=== PATIENT | female | born 2000 | race Two or more races ===

== ENCOUNTER → 2023-05-27 | Outpatient (CLI) | payer BC | END | disposition home or self-care (01) | LOC: LAB 11:02 | PROVIDERS: ATTEND Obstetrics & Gynecology | DX: Z11.3 Encounter for screening for infections with a predominantly sexual mode of transmission (principal) ==

== ENCOUNTER → 2024-01-27 | Outpatient (CLI) | payer BC ==
[2024-01-29 05:06] LABS: Chlamydia Trachomatis, NAA Negative (Negative); Neisseria gonorrhoeae, NAA Negative (Negative)
== END | disposition home or self-care (01) ==
LOC: LAB 07:37
PROVIDERS: ATTEND Obstetrics & Gynecology
DX: Z34.00 Encounter for supervision of normal first pregnancy, unspecified trimester (principal); Z3A.00 Weeks of gestation of pregnancy not specified

== ENCOUNTER → 2024-06-13 | Outpatient (CLI) | payer BC ==
[2024-06-13 11:36] LABS: Basophils # (auto) 0 10 ^3/uL (0-0.2); Basophils % (auto) 0.2 % (0.0-2.0); Eosinophils # (auto) 0 10 ^3/uL (0-0.8); Eosinophils % (auto) 0.6 % (0.0-7.0); Hematocrit 34.5 % (36.0-46.0); Lymphocytes # (auto) 1.6 10 ^3/uL (0.4-5.4); Lymphocytes % (auto) 19.8 % (10.0-50.0); Mean Corpuscular Hemoglobin 31.9 pg (28.0-32.0); Mean Corpuscular Hgb Conc. 34.7 g/dL (32.0-36.0); Monocytes # (auto) 0.8 10 ^3/uL (0-1.3); Monocytes % (auto) 9.2 % (0.0-12.0); Neutrophils # (auto) 5.8 10 ^3/uL (1.6-8.6); Neutrophils % (auto) 70.2 % (37.0-80.0); Platelet Count (auto) 172 10^3/uL (140-450); Red Blood Cells 3.75 10^6/uL (4.0-5.20); Red Cell Distribution Width 14.8 % (11.8-14.3); White Blood Cell 8.3 10^3/uL (4.4-10.8)
== END | disposition home or self-care (01) ==
LOC: LAB 11:05
PROVIDERS: ATTEND Obstetrics & Gynecology
DX: Z01.419 Encounter for gynecological examination (general) (routine) without abnormal findings (principal)
CPT/HCPCS: 36415; 85025

== ENCOUNTER 2024-07-01 08:03 | Observation (INO) | payer BC ==
[2024-07-01] MEDS ORDERED: PREN1TAB71 OR (08:22)
== END 2024-07-01 09:31 | disposition home or self-care (01) ==
LOC: LDRP 08:03
PROVIDERS: ADMIT Obstetrics & Gynecology; ATTEND Obstetrics & Gynecology
DX: O42.913 Preterm premature rupture of membranes, unspecified as to length of time between rupture and onset of labor, third trimester (principal); Z3A.40 40 weeks gestation of pregnancy; Z79.899 Other long term (current) drug therapy
CPT/HCPCS: 59025; 76818; 81002; G0378

== ENCOUNTER 2024-07-02 01:27 | Observation (INO) | payer BC ==
[~2024-07-02] VITALS: Ht 162.6 cm; Wt 78.0 kg
[~2024-07-02 01:27] MED LIST: PREN1TAB71 OR
[2024-07-03] MEDS ORDERED: IBU600T PO ×2 (20:32)
[2024-07-03] MEDS ORDERED: DOCU-94 PO ×2 (20:32)
[2024-07-03] MEDS ORDERED: PREN1TAB71 PO ×2 (20:32)
== END 2024-07-02 02:37 | disposition home or self-care (01) ==
LOC: LDRP 01:27
PROVIDERS: ADMIT Obstetrics & Gynecology; ATTEND Obstetrics & Gynecology
DX: O48.0 Post-term pregnancy (principal); O47.1 False labor at or after 37 completed weeks of gestation; Z3A.40 40 weeks gestation of pregnancy
CPT/HCPCS: 59025; 81002; 94760; G0378

== ENCOUNTER 2024-07-02 05:46 | Inpatient (IN) | payer BC ==
[~2024-07-02] VITALS: Ht 162.6 cm; Wt 78.0 kg
[2024-07-02] MEDS ORDERED: LIDOCAINE 2%HCL (LOCAL ANESTH.) INJ 20ML MDV IJ PRN (06:30)
[2024-07-02 07:10] LABS: Basophils # (auto) 0 10 ^3/uL (0-0.2); Basophils % (auto) 0.3 % (0.0-2.0); Eosinophils # (auto) 0 10 ^3/uL (0-0.8); Eosinophils % (auto) 0.3 % (0.0-7.0); Hemoglobin 12.9 g/dL (12.2-16.2); Lymphocytes # (auto) 1.4 10 ^3/uL (0.4-5.4); Lymphocytes % (auto) 12.2 % (10.0-50.0); Mean Corpuscular Volume 91.1 fL (80.0-100.0); Monocytes # (auto) 0.6 10 ^3/uL (0-1.3); Monocytes % (auto) 4.8 % (0.0-12.0); Neutrophils # (auto) 9.8 10 ^3/uL (1.6-8.6); Neutrophils % (auto) 82.4 % (37.0-80.0); Platelet Count (auto) 189 10^3/uL (140-450); Red Blood Cells 4.17 10^6/uL (4.0-5.20); White Blood Cell 11.9 10^3/uL (4.4-10.8)
[2024-07-02 07:24] LABS: INR 0.95 (0.9-1.15); Partial Thromboplastin Time 26.7 SEC (24.5-34.5); Prothrombin Time 10.1 sec (9.3-11.8)
[2024-07-02] MEDS: LACTATED RINGER'S 1,000 ML IV SCH (07:26)
[2024-07-02 07:28] LABS: Alanine Aminotransferase < 9 U/L (7-40); Albumin 4.3 g/dL (3.2-4.8); Alkaline Phosphatase 262 U/L (46-116); Anion Gap 11 (5-15); Aspartate Aminotransferase 15 U/L (13-40); Bilirubin, Total 0.4 mg/dL (0.2-1.0); Blood Urea Nitrogen < 5 mg/dL (9-23); Calcium 9.9 mg/dL (8.7-10.4); Carbon Dioxide 18 mmol/L (20-31); Chloride 106 mmol/L (98-107); Glucose 90 mg/dL (74-106); Potassium 3.5 mmol/L (3.5-5.1); Sodium 135 mmol/L (136-145); Total Protein 6.8 g/dL (5.7-8.2)
[2024-07-02] MEDS: ROPIVACAINE HCL 200 ML ONE (07:28)
[2024-07-02 08:35] LABS: Urine Amorphous Crystal FEW /hpf (None Seen); Urine Bacteria FEW /hpf (None Seen); Urine Blood 3+ /uL (Negative); Urine Clarity Turbid (Clear); Urine Color Light-Yellow (Yellow); Urine Mucus FEW (None Seen); Urine Protein, UAD Negative (Negative); Urine Specific Gravity 1.012 (1.001-1.035); Urine Urobilinogen Normal (Negative); Urine WBC 4 /hpf (0 - 5)
[2024-07-02 08:59] LABS: Amphetamine Screen, Urine Neg (NEGATIVE)
[2024-07-02 09:01] LABS: Barbiturate Scree,Urine Neg (NEGATIVE); Benzodiazephine Screen, Urine Neg (NEGATIVE); Cocaine Screen, Urine Neg (NEGATIVE); Opiate Scree,Urine Neg (NEGATIVE)
[2024-07-02 09:02] LABS: Cannabinoid Screen, Urine Neg (NEGATIVE); Phencyclidine Screen, Urine Neg (NEGATIVE)
[2024-07-02] MEDS: LACT. RINGERS/OXYTOCIN 20UNITS 1,000 ML IV SCH (11:30)
[2024-07-02] MEDS: LACT. RINGERS/OXYTOCIN 20UNITS 500 ML IV ONE ×2 (17:36→17:37)
[2024-07-02] MEDS ORDERED: ONDANSETRON ODT 4 MG TAB PO PRN (18:15)
[2024-07-02] MEDS ORDERED: BETAMETHASONE ACET (30mg/5ml) 5ml Vial 6mg/ml IM ONE (20:00)
[2024-07-02] MEDS: IBUPROFEN 600 MG TAB PO PRN (21:03)
[2024-07-02] MEDS: DERMOPLAST 60ML BOTTLE TOP PRN (21:10)
[2024-07-02] MEDS: PHISODERM TOP SOLN 240ML BTL TOP PRN (21:10)
[2024-07-02] MEDS: WITCH HAZEL-GLYCERIN PAD TOP PRN (21:11)
[2024-07-02 23:00] VITALS: BP 115/70; PULSE 82; RESP 18; TEMP 98.3; O2SAT 98
[2024-07-03] MEDS: ACETAMINOPHEN 325 MG TAB PO PRN (00:47)
[2024-07-03 03:15] VITALS: RESP 20
[2024-07-03 07:02] VITALS: BP 116/77; PULSE 69; RESP 18; TEMP 98.5; O2SAT 98
[2024-07-03 11:06] VITALS: BP 121/72; PULSE 80; RESP 18; TEMP 98.6; O2SAT 98
[2024-07-03 15:00] VITALS: BP 124/69; PULSE 88; RESP 16; TEMP 97.1; O2SAT 97
[2024-07-03 19:25] VITALS: BP 120/74; PULSE 78; RESP 16; TEMP 98; O2SAT 97
[2024-07-03] MEDS ORDERED: DOCU-94 PO ×2 (20:32)
[2024-07-03] MEDS ORDERED: IBU600T PO ×2 (20:32)
[2024-07-03] MEDS ORDERED: PREN1TAB71 PO ×2 (20:32)
[2024-07-03 21:23] VITALS: BP 120/74; PULSE 78; RESP 16; TEMP 98; O2SAT 97
[2024-07-04 06:07] LABS: RPR Non Reactive (Non Reactive)
== END 2024-07-03 21:23 | disposition home or self-care (01) | DRG 807 ==
LOC: UNDOADMOB 05:46 → LDRP 05:46 → INTOOBSV 06:28 → OBSVTOIN 06:28 → LDRP 06:28 → OBSVTOIN 06:31 → LDRP 07-03 01:00
PROVIDERS: ADMIT Obstetrics & Gynecology; ATTEND Obstetrics & Gynecology
PROC: 10E0XZZ Delivery of Products of Conception, External Approach (ICD-10-PCS; principal; 2024-07-02)
PROC: 0KQM0ZZ Repair Perineum Muscle, Open Approach (ICD-10-PCS; 2024-07-02)
PROC: 0HQ9XZZ Repair Perineum Skin, External Approach (ICD-10-PCS; 2024-07-02)
PROC: 3E0R3BZ Introduction of Anesthetic Agent into Spinal Canal, Percutaneous Approach (ICD-10-PCS; 2024-07-02)
PROC: 00HU33Z Insertion of Infusion Device into Spinal Canal, Percutaneous Approach (ICD-10-PCS; 2024-07-02)
DX: O48.0 Post-term pregnancy (principal); Z37.0 Single live birth; O70.1 Second degree perineal laceration during delivery; O77.0 Labor and delivery complicated by meconium in amniotic fluid; O70.0 First degree perineal laceration during delivery; Z3A.40 40 weeks gestation of pregnancy
CPT/HCPCS: 36415; 59025; 59409; 62282; 80053; 80307; 81001; 81002; 85025; 85610; 85730; 86592; 86780; 86803; 86850; 86900; 86901; 94760; 96360; 96361; 96365; 96366; G0378; J2590

== ENCOUNTER 2024-07-06 12:02 | Inpatient (IN) | payer BC ==
[~2024-07-06] VITALS: Ht 160 cm; Wt 77.3 kg
[~2024-07-06 12:02] MED LIST changes: +DOCU-94 PO; +IBU600T PO; -PREN1TAB71 OR; +PREN1TAB71 PO
[2024-07-06 12:55] LABS: Urine Bacteria None Seen /hpf (None Seen)
[2024-07-06 13:01] LABS: Urine Blood 3+ /uL (Negative); Urine Clarity Ex.Turbid (Clear); Urine Color Dark-Yellow (Yellow); Urine Mucus FEW (None Seen); Urine Protein, UAD 3+ (Negative); Urine Specific Gravity 1.016 (1.001-1.035); Urine Urobilinogen 3 mg/dL (Negative); Urine WBC 2615 /hpf (0 - 5); Urine WBC Clumps PRESENT /hpf (None Seen); Urine pH 6.5 (5.0-9.0)
[2024-07-06 13:16] LABS: Basophils # (auto) 0 10 ^3/uL (0-0.2); Basophils % (auto) 0.1 % (0.0-2.0); Eosinophils # (auto) 0.1 10 ^3/uL (0-0.8); Eosinophils % (auto) 0.9 % (0.0-7.0); Hematocrit 37.3 % (36.0-46.0); Hemoglobin 12.5 g/dL (12.2-16.2); Lymphocytes # (auto) 0.3 10 ^3/uL (0.4-5.4); Lymphocytes % (auto) 3.7 % (10.0-50.0); Mean Corpuscular Hemoglobin 31.1 pg (28.0-32.0); Mean Corpuscular Hgb Conc. 33.6 g/dL (32.0-36.0); Mean Corpuscular Volume 92.6 fL (80.0-100.0); Monocytes # (auto) 0.3 10 ^3/uL (0-1.3); Monocytes % (auto) 3.8 % (0.0-12.0); Neutrophils % (auto) 91.5 % (37.0-80.0); Platelet Count (auto) 201 10^3/uL (140-450); Red Blood Cells 4.03 10^6/uL (4.0-5.20); White Blood Cell 8.8 10^3/uL (4.4-10.8)
[2024-07-06] MEDS: KETOROLAC TROMETH 30 MG/ML 1ML VIAL IV ONE (13:18)
[2024-07-06] MEDS: SODIUM CHLORIDE 0.9% 1,000 ML IV ONE ×2 (13:18→16:25)
[2024-07-06] MEDS: ONDANSETRON HCL 4 MG/2 ML VIAL IV ONE ×2 (13:18→18:31)
[2024-07-06] MEDS: ACETAMINOPHEN IV 1000 MG/100ML (10MG/ML) IV STA (13:19)
[2024-07-06 13:30] LABS: Anion Gap 9 (5-15); Carbon Dioxide 22 mmol/L (20-31); Chloride 107 mmol/L (98-107); Potassium 3.4 mmol/L (3.5-5.1); Sodium 138 mmol/L (136-145)
[2024-07-06 13:31] LABS: Calcium 9.5 mg/dL (8.7-10.4)
[2024-07-06 13:36] LABS: BUN/Creatinine Ratio 15.2 (10.0-20.0); Blood Urea Nitrogen 10 mg/dL (9-23); Glucose 88 mg/dL (74-106)
[2024-07-06] MEDS ORDERED: IOHEXOL 300 MG/ML 100ML BOTTLE IJ ONE (14:25)
[2024-07-06] MEDS: CLINDAMYCIN 900MG IV 50 ML IV ONE (16:25)
[2024-07-06] MEDS: CEFEPIME 2GM/50ML NS 50 ML IV ONE (17:47)
[2024-07-06] MEDS ORDERED: ONDANSETRON HCL 4 MG/2 ML VIAL ONE (18:28)
[2024-07-06] MEDS ORDERED: ONDANSETRON ODT 4 MG TAB PO ONE (18:30)
[2024-07-06] MEDS: MORPHINE SULFATE 4 MG/ML SYR/VIAL IV ONE (18:31)
[2024-07-06 19:24] VITALS: PULSE 121; RESP 26; O2SAT 97
[2024-07-06] MEDS ORDERED: ONDANSETRON HCL 4 MG/2 ML VIAL IV PRN (22:15)
[2024-07-06] MEDS ORDERED: MORPHINE SULFATE INJ 2 MG/ml SYRG IV PRN ×2 (22:15→23:15)
[2024-07-06] MEDS: SODIUM CHLORIDE 0.9% 1,000 ML IV SCH (22:26)
[2024-07-06] MEDS: POTASSIUM CHL 20 Meq TABLET PO ONE (22:27)
[2024-07-06] MEDS ORDERED: NITROGLYCERIN 0.4 MG SL TAB SL PRN (23:15)
[2024-07-07] VITALS (8 sets, daily range): BP systolic 98–119; BP diastolic 58–67; PULSE 70–94; RESP 16–19; TEMP 98.1–98.9; O2SAT 95–99
[2024-07-07] MEDS: ACETAMINOPHEN 325 MG TAB PO PRN (02:48)
[2024-07-07 07:29] LABS: Basophils # (auto) 0 10 ^3/uL (0-0.2); Basophils % (auto) 0.1 % (0.0-2.0); Eosinophils # (auto) 0 10 ^3/uL (0-0.8); Eosinophils % (auto) 0.1 % (0.0-7.0); Hematocrit 32.9 % (36.0-46.0); Hemoglobin 11.1 g/dL (12.2-16.2); Lymphocytes # (auto) 0.6 10 ^3/uL (0.4-5.4); Lymphocytes % (auto) 3.6 % (10.0-50.0); Mean Corpuscular Hemoglobin 31.7 pg (28.0-32.0); Mean Corpuscular Hgb Conc. 33.7 g/dL (32.0-36.0); Monocytes # (auto) 1.2 10 ^3/uL (0-1.3); Neutrophils # (auto) 14.9 10 ^3/uL (1.6-8.6); Neutrophils % (auto) 89.2 % (37.0-80.0); Platelet Count (auto) 153 10^3/uL (140-450); Red Cell Distribution Width 15.4 % (11.8-14.3); White Blood Cell 16.7 10^3/uL (4.4-10.8)
[2024-07-07 07:50] LABS: Alanine Aminotransferase 13 U/L (7-40); Albumin 3.7 g/dL (3.2-4.8); Alkaline Phosphatase 152 U/L (46-116); Anion Gap 10 (5-15); Aspartate Aminotransferase 18 U/L (13-40); Blood Urea Nitrogen 9 mg/dL (9-23); Calcium 8.8 mg/dL (8.7-10.4); Carbon Dioxide 20 mmol/L (20-31); Chloride 109 mmol/L (98-107); Glucose 101 mg/dL (74-106); Potassium 3.8 mmol/L (3.5-5.1); Sodium 139 mmol/L (136-145)
[2024-07-07 07:51] LABS: Bilirubin, Total 0.4 mg/dL (0.2-1.0); Total Protein 5.9 g/dL (5.7-8.2)
[2024-07-07] MEDS: cefTRIAXone 1GM/50ML D5W 50 ML IV SCH (08:23)
[2024-07-07] MEDS: HYDROcodone-ACET 5/325MG TAB PO PRN (08:26)
[2024-07-07] MEDS ORDERED: CEFEPIME 1GM/ 50ML 50 ML IV SCH (10:00)
[2024-07-08 01:00] VITALS: BP 101/51; PULSE 66; RESP 16; TEMP 98.5; O2SAT 94
[2024-07-08 05:00] VITALS: BP 112/71; PULSE 68; RESP 16; TEMP 97.8; O2SAT 99
[2024-07-08 05:55] LABS: Basophils # (auto) 0 10 ^3/uL (0-0.2); Basophils % (auto) 0.2 % (0.0-2.0); Eosinophils # (auto) 0.1 10 ^3/uL (0-0.8); Eosinophils % (auto) 1.4 % (0.0-7.0); Hematocrit 32.3 % (36.0-46.0); Hemoglobin 10.9 g/dL (12.2-16.2); Lymphocytes # (auto) 1.7 10 ^3/uL (0.4-5.4); Lymphocytes % (auto) 16.5 % (10.0-50.0); Mean Corpuscular Hemoglobin 31.7 pg (28.0-32.0); Mean Corpuscular Hgb Conc. 33.7 g/dL (32.0-36.0); Mean Corpuscular Volume 93.8 fL (80.0-100.0); Monocytes # (auto) 0.9 10 ^3/uL (0-1.3); Neutrophils # (auto) 7.4 10 ^3/uL (1.6-8.6); Neutrophils % (auto) 72.9 % (37.0-80.0); Platelet Count (auto) 157 10^3/uL (140-450); Red Blood Cells 3.44 10^6/uL (4.0-5.20); Red Cell Distribution Width 15.2 % (11.8-14.3); White Blood Cell 10.2 10^3/uL (4.4-10.8)
[2024-07-08 08:00] VITALS: PULSE 63; PULSE 79; RESP 19; O2SAT 97
[2024-07-08 08:34] VITALS: BP 108/64; PULSE 71; RESP 17; TEMP 98.3; O2SAT 100
[2024-07-08] MEDS: DOCUSATE SOD 100 MG CAP PO PRN (09:04)
[2024-07-08 12:40] VITALS: BP 109/66; PULSE 64; RESP 18; TEMP 98.1; O2SAT 97
[2024-07-08] MEDS ORDERED: CIPR-173 PO (12:58)
[2024-07-08 13:52] VITALS: TEMP 36.7
== END 2024-07-08 14:50 | disposition home or self-care (01) | DRG 776 ==
LOC: ER 12:02 → TELE-WESTW 23:08 → TELE 23:08 → TELE-WESTW 07-07 03:07
PROVIDERS: ADMIT Nurse Practitioner Family; ATTEND Nurse Practitioner Family
DX: O85 Puerperal sepsis (principal); N13.6 Pyonephrosis; O86.21 Infection of kidney following delivery; O72.1 Other immediate postpartum hemorrhage; N89.8 Other specified noninflammatory disorders of vagina; N93.9 Abnormal uterine and vaginal bleeding, unspecified; Z79.899 Other long term (current) drug therapy
CPT/HCPCS: 36415; 74177; 76856; 80048; 80053; 81001; 85025; 87081; 87086; G0378; J0131; J0692; J1885; J2405; J3490